=== PATIENT | male | born 1945 | race Caucasian/White ===

== ENCOUNTER 2025-02-14 21:50 | Emergency (ER) | payer OTHER ==
--- NOTE | 2025-02-14 22:31 | RAD REPORT ---
EXAMINATION: CT HEAD WITHOUT CONTRAST CT CERVICAL SPINE WITHOUT CONTRAST CLINICAL INDICATION: Male, 79 years old. SYNCOPE TECHNIQUE: Axial CT images from the skull base to the vertex without intravenous contrast. Axial CT i mages through the cervical spine were obtained without intravenous contrast. Sagittal and coronal reformatted images were created from the data set. Coronal and sagittal reformatted images were creat ed from the data set. One or more of the following dose reduction techniques were used: Automated exposure control, adjustment of the mA and/or kV according to patient size, and/or iterative reconstr uction. Unless otherwise specified, incidental findings do not require dedicated imaging follow-up. [id number]. COMPARISON: No prior exam. FINDINGS: Head: INTRACRANIAL: No acute intracranial hemorrhage. No hydrocephalus. No mass effect or midline shift. Mi ld chronic small vessel ischemic changes.Mild cerebral atrophy. VASCULATURE: No visualized abnormalities in the arteries or dural venous sinuses. SCALP/SKULL: No calvarial fracture identified. No acute soft tissue abnormality. SINUSES: The visualized paranasal sinuses are mostly clear. No significant mastoid fluid. Cervical spine: ALIGNMENT: The cervical spine has normal alignment without scoliosis or spondylolisthesis. BONE: Bridging or near bridging osteophytes extending from C2 through the thoracic spine consistent w ith diffuse idiopathic skeletal hyperostosis.. DEGENERATIVE: Mild neural foraminal narrowing is present at several levels, though most advanced on t he left at C6-7 where it is moderate. Posterior osteophyte at C3-4 likely relates to at least mild to moderate central spinal stenosis. SOFT TISSUE: No significant abnormalities in the soft tissue of the neck. The visualized lung apices are clear. Carotid artery calcifications. IMPRESSION: No acute intracranial abnormality. No acute fracture or traumatic malalignment of the cervical spine.
--- NOTE | 2025-02-14 22:32 | RAD REPORT ---
EXAM: Chest Single View HISTORY: 79 years Male syncope COMPARISON: None. FINDINGS: LUNGS/PLEURA: Hazy opacities in lung bases favored to represent chronic interstitial changes. No defi nite acute process. CARDIAC/MEDIASTINUM: The cardiac silhouette is within normal limits. UPPER ABDOMEN: No significant abnormality. BONES: Sternotomy. No acute abnormality. LINES/TUBES/OTHER: N/A IMPRESSION: Probably chronic changes in the lung bases but no priors available for comparison. No consolidative a irspace disease or pulmonary edema.
[2025-02-14 22:40] LABS: Absolute Basophils 0.1 K/uL (0-0.5); Absolute Eosinophils 0.5 K/uL (0-0.5); Absolute Lymphocytes (CBC) 1.4 K/uL (0.7-4.9); Absolute Neutrophil 4.6 K/uL (1.8-8.0); Basophils % 1.3 % (0-1.3); Eosinophils % 7.1 % (0-4.4); Hematocrit 33.7 % (39.6-49.0); Hemoglobin 11.5 g/dL (13.6-17.9); Lymphocytes % 17.8 % (15.3-44.8); MCH 30.7 pg (27.0-35.0); MCV 90.2 fL (80-100); MPV 7.2 fL (7.6-11.3); Monocytes % 13.4 % (3.3-12.3); Neutrophils % 60.4 % (41.7-73.7); Nucleated Red Blood Cells % 0.2 % (0-0); Platelets 190 thou/uL (152-406); RBC Red Blood Cell Count 3.74 M/uL (4.33-5.43)
[2025-02-14 22:43] LABS: PT Prothrombin Time 14.2 SECONDS (10-13.0); Protime INR 1.26
[2025-02-14 22:55] LABS: ALT/SGPT 16 U/L (16-61); AST/SGOT 15 U/L (15-37); Albumin 3.2 g/dL (3.4-5.0); Albumin/Globulin Ratio 0.8 (1.1-1.8); Alkaline Phosphatase 88 U/L (45-117); Anion Gap 11.6 mEq/L (5.0-15.0); BUN Blood Urea Nitrogen 51 mg/dL (7-18); Bicarbonate 23 mEq/L (21-32); Bilirubin Total 0.5 mg/dL (0.2-1.0); Globulin 4.2 g/dL (2.3-3.5); Glomerular Filtration Rate 33 ml/min (=/>90); Glucose Level 118 mg/dL (74-106); Magnesium 2.1 mg/dL (1.6-2.4); Potassium 4.6 mEq/L (3.5-5.1); Protein, Total 7.4 g/dL (6.4-8.2); Sodium Level 136 mEq/L (136-145); Troponin High Sensitivity 6.9 pg/mL (<58.9)
[2025-02-14 22:56] LABS: Bilirubin Direct < 0.2 mg/dL (0-0.2); Bilirubin Indirect, Calculated 0.3 mg/dL (0.2-0.8)
[2025-02-14] MEDS ORDERED: NA CHLORIDE 0.9% 1,000 ML ONE (23:12)
--- NOTE | 2025-02-15 00:50 | ER ---
Nurse's Notes [facility] Name: Lc Chaudhari Age: 79 yrs Sex: Male : 1945 Arrival Date: 02/14/2025 Time: 21:50 Bed 15 Private MD: Diagnosis: Orthostatic hypotension;Syncope;Abnormal results of kidney function studies Presentation: 02/14 22:00 Chief complaint: EMS states: toned out for syncopal episode at home, Family able to me1 assist patient to the ground. Did not hit his head. Patient reports dizziness for about 3 months. Daughter reports increased confusion since moving here about a week ago. 20g RAC, BGL 85. BP 80/50 when EMS first got to patient, 107/63 on arrival to ER. Coronavirus screen: Vaccine status: Patient reports being unvaccinated. Ebola Screen: No symptoms or risks identified at this time. Initial Sepsis Screen: Does the patient meet any 2 criteria? No. Patient's initial sepsis screen is negative. Does the patient have a suspected source of infection? No. Patient's initial sepsis screen is negative. Risk Assessment: Do you want to hurt yourself or someone else? Patient reports no desire to harm self or others. Onset of symptoms was February 14, 2025. Care prior to arrival: IV initiated. 20 GA, in the right antecubital area, Glucose check: 85. 22:00 Method Of Arrival: EMS: [facility]1 22:00 Acuity: BROOKS 3 me1 Triage Assessment: 22:04 General: Appears in no apparent distress. well groomed, well developed, well nourished, tn1 Behavior is calm, cooperative, appropriate for age. Pain: Denies pain. EENT: No signs and/or symptoms were reported regarding the EENT system. Neuro: Level of Consciousness is awake, alert, obeys commands, Oriented to person, place, time, situation, Appropriate for age Reports dizziness, since about 3 months ago a syncopal episode. Cardiovascular: Patient's skin is warm and dry. Respiratory: Airway is patent Respiratory effort is even, unlabored, Respiratory pattern is regular, symmetrical. GI: No signs and/or symptoms were reported involving the gastrointestinal system. : No signs and/or symptoms were reported regarding the genitourinary system. Derm: Skin is intact, is healthy with good turgor, Skin is pink, warm \T\ dry. Musculoskeletal: No signs and/or symptoms reported regarding the musculoskeletal system. Historical: - Allergies: 22:04 No Known Allergies; me1 - PMHx: 22:04 Hypertensive disorder; me1 - PSHx: 22:04 Coronary artery bypass graft; me1 - Immunization history:: Adult Immunizations up to date. - Infectious Disease History:: Denies. - Social history:: Smoking status: Patient/guardian denies using tobacco, but has a distant history of tobacco abuse. Screenin:05 [facility] ED Fall Risk Assessment (Adult) History of falling in the last 3 months, me1 including since admission Yes- single mechanical fall (1 pt) Confusion or Disorientation No (0 pts) Intoxicated or Sedated No (0 pts) Impaired Gait No (0 pts) Mobility Assist Device Used No (0 pt) Altered Elimination No (0 pt) Score/Fall Risk Level 0 - 2 = Low Risk Maintained a safe environment, Provided non-skid footwear, Hourly rounding (assess needs \T\ fall precautionary measures) done. Abuse screen: Denies threats or abuse. Nutritional screening: No deficits noted. Tuberculosis screening: No symptoms or risk factors identified. Assessment: 22:05 General: See triage assessment. tn1 02/15 00:57 Cardiovascular: Rhythm is sinus rhythm. 5 Vital Signs: 02/14 22:00 BP 110 / 63; Pulse 75; Resp 18; Temp 97.3; Pulse Ox 100% ; Weight 63.5 kg; Height 5 ft. me1 9 in. ; Pain 0/10; 23:10 BP 116 / 66 Supine; Pulse 69; Resp 20; Pulse Ox 99% ; me1 23:11 BP 118 / 62 Sitting; Pulse 73; me1 23:12 BP 85 / 59 Standing; Pulse 69; me1 23:45 BP 130 / 63; Pulse 66; Resp 18; Pulse Ox 100% ; me1 0318 00:50 BP 141 / 66; Pulse 75; Resp 17; Temp 98; Pulse Ox 99% on R/A; Pain 0/10; rg5 00:52 BP 121 / 69 Sitting; Pulse 75; rg5 00:54 BP 106 / 58 LA Standing; Pulse 77; rg5 02/14 22:00 Body Mass Index 20.67 (63.50 kg, 175.26 cm) me1 02/14 22:00 Pain Scale: Adult me1 02/15 00:50 Pain Scale: Adult rg5 ED Course: 02/14 21:50 Patient arrived in ED. [email or web address] 21:52 Tanner Nava PA is PHCP. cp 21:52 Yosef Randall MD is Attending Physician. cp 22:00 Fabiola So, RN is Primary Nurse. me1 22:04 Triage completed. me1 22:04 Arm band placed on Patient placed in an exam room. me1 22:05 Patient has correct armband on for positive identification. Bed in low position. Call me1 light in reach. Side rails up X2. Provided Education on: POC. Verbalized understanding.. Client placed on continuous cardiac and pulse oximetry monitoring. NIBP monitoring applied. manufacturing lab technician on. Pulse ox on. NIBP on. 22:05 No provider procedures requiring assistance completed. Maintain EMS IV. Dressing me1 intact. Good blood return noted. Site clean \T\ dry. Gauge \T\ site: 20g RAC. Flushed with 10 mL NS. 22:14 CT Head C Spine In Process Unspecified. EDMS 22:23 XRAY Chest (1 view) In Process Unspecified. EDMS 22:37 Basic Metabolic Panel Sent. me1 22:37 CBC with Diff Sent. me1 22:37 LFT's Sent. me1 22:37 Magnesium Sent. me1 22:37 PT-INR Sent. me1 22:37 Troponin HS Sent. me1 22:37 Initial lab(s) drawn, by tn, sent to lab. EKG done, by ED staff, reviewed by Tanner Nava me1 BERTHA. 02/15 00:50 Gunner Sylvester MD is Referral Physician. cp 00:50 Kayal Montano MD is Referral Physician. cp 00:57 IV discontinued, bleeding controlled, No redness/swelling at site. Pressure dressing rg5 applied. Administered Medications: 02/14 23:19 Drug: NS 0.9% IV 1000 ml IV at 1000 ml once; to be given as a bolus over 60 minutes me1 Route: IV; Rate: 1000 ml; Site: right antecubital; 02/15 01:03 Follow up: IV Status: Completed infusion; IV Intake: 1000ml rg5 Medication: 02/14 22:05 VIS not applicable for this client. me1 Intake: 02/15 01:03 IV: 1000ml; Total: 1000ml. rg5 Outcome: 00:50 Discharge ordered by . ollie 01:02 Discharged to home ambulatory, rg5 01:02 Condition: stable 01:02 Discharge instructions given to patient, family, Instructed on discharge instructions, follow up and referral plans. Demonstrated understanding of instructions, follow-up care, 01:03 Patient left the ED. rg5 Signatures: Dispatcher [employer] EDMS Tanner Nava PA PA cp Jeffries, Jennifer [email or web address] Fabiola So, RN RN me1 Edil Mcnair RN RN rg5
--- NOTE | 2025-02-15 00:50 | EDPHYS ---
Physician Documentation [facility] Name: Lc Chaudhari Age: 79 yrs Sex: Male : 1945 Arrival Date: 02/14/2025 Time: 21:50 Bed 15 Private MD: ED Physician Yosef Randall HPI: 02/14 22:00 This 79 yrs old Male presents to ER via EMS with complaints of Syncope. cp 22:00 The patient has experienced syncope, lost consciousness. Onset: The symptoms/episode cp began/occurred just prior to arrival. 22:00 Duration: This was a single episode, that lasted an unknown period of time. Context: cp the episode(s) was witnessed, by family, son, Just prior to the episode the patient experienced dizziness, lightheadedness, Patient reports he stood up, believes he stood up too fast, and was observed to lose consciousness by son. No injuries sustained as patient was caught by son before hitting ground. Patient reports similar episodes in the past recently. Historical: - Allergies: 22:04 No Known Allergies; me1 - PMHx: 22:04 Hypertensive disorder; me1 - PSHx: 22:04 Coronary artery bypass graft; me1 - Immunization history:: Adult Immunizations up to date. - Infectious Disease History:: Denies. - Social history:: Smoking status: Patient/guardian denies using tobacco, but has a distant history of tobacco abuse. ROS: 22:05 Constitutional: Negative for body aches, chills, fever, poor PO intake, cp 22:05 Eyes: Negative for injury, pain, redness, and discharge, cp 22:05 Cardiovascular: Negative for chest pain, edema, palpitations, 22:05 ENT: Negative for drainage from ear(s), ear pain, sore throat, difficulty swallowing, cp difficulty handling secretions, 22:05 Respiratory: Negative for cough, shortness of breath, wheezing, 22:05 Abdomen/GI: Negative for abdominal pain, nausea, vomiting, and diarrhea, 22:05 : Negative for urinary symptoms, 22:05 Neuro: Positive for syncope, Negative for altered mental status, headache, seizure activity, weakness, 22:05 All other systems are negative, Exam: 22:10 Constitutional: The patient appears in no acute distress, alert, awake, comfortable, cp non-diaphoretic, non-toxic, well developed, well nourished, 22:10 Head/face: Noted is abrasion(s), that are mild, of the nose, Sinus tenderness, is not cp appreciated, 22:10 Eyes: Periorbital structures: appear normal, Pupils: equal, round, and reactive to light and accomodation, Extraocular movements: intact throughout, Conjunctiva: normal, no exudate, no injection, Sclera: no appreciated abnormality, Lids and lashes: appear normal, bilaterally, 22:10 ENT: External ear(s): are unremarkable, Nose: Nasal septum: is midline, non-tender, Mouth: Lips: moist, Oral mucosa: moist, Posterior pharynx: Airway: no evidence of obstruction, patent, 22:10 Neck: C-spine: vertebral tenderness, is not appreciated, crepitus, is not appreciated, ROM/movement: is normal, is supple, without pain, no range of motions limitations, 22:10 Chest/axilla: Inspection: normal, Palpation: is normal, no crepitus, no tenderness, 22:10 Cardiovascular: Rate: normal, Rhythm: regular, Edema: is not appreciated, JVD: is not appreciated, 22:10 Respiratory: the patient does not display signs of respiratory distress, Respirations: normal, no use of accessory muscles, no retractions, labored breathing, is not present, Breath sounds: are clear throughout, no decreased breath sounds, no stridor, no wheezing, 22:10 Abdomen/GI: Inspection: abdomen appears normal, Palpation: abdomen is soft and non-tender, in all quadrants, 22:10 Back: pain, is absent, ROM is normal, 22:10 Neuro: Orientation: to person, place \T\ time. Mentation: is normal, Cerebellar function: is grossly normal, Motor: moves all fours, strength is normal, Sensation: is normal, 22:38 ECG was reviewed by the Attending Physician. cp Vital Signs: 22:00 BP 110 / 63; Pulse 75; Resp 18; Temp 97.3; Pulse Ox 100% ; Weight 63.5 kg; Height 5 ft. me1 9 in. ; Pain 0/10; 23:10 BP 116 / 66 Supine; Pulse 69; Resp 20; Pulse Ox 99% ; me1 23:11 BP 118 / 62 Sitting; Pulse 73; me1 23:12 BP 85 / 59 Standing; Pulse 69; me1 23:45 BP 130 / 63; Pulse 66; Resp 18; Pulse Ox 100% ; me1 02/15 00:50 BP 141 / 66; Pulse 75; Resp 17; Temp 98; Pulse Ox 99% on R/A; Pain 0/10; rg5 00:52 BP 121 / 69 Sitting; Pulse 75; rg5 00:54 BP 106 / 58 LA Standing; Pulse 77; rg5 02/14 22:00 Body Mass Index 20.67 (63.50 kg, 175.26 cm) me1 02/14 22:00 Pain Scale: Adult me1 02/15 00:50 Pain Scale: Adult rg5 MDM: 02/14 21:52 Medical Screening Exam initiated cp 22:00 Differential Diagnosis: cardiac arrhythmia, cerebrovascular accident, drug effect, GI cp bleed, idiopathic syncope, pseudo seizure, seizure, transient ischemic attack, vasovagal episode. 02/15 00:50 Data reviewed: vital signs, nurses notes, lab test result(s), EKG, radiologic studies, cp CT scan, plain films, and as a result, I will discharge patient. 00:50 Consideration of Admission/Observation Escalation of care including cp admission/observation considered. I considered the following discharge prescriptions or medication management in the emergency department Medications were administered in the Emergency Department. See MAR. Independent interpretation of the following test(s) in the Emergency Department EKG: See my EKG interpretation above. Care significantly affected by the following chronic conditions: Hypertension. 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 Refusal of service: The patient/guardian displays adequate decision making capability and despite a detailed discussion of alternatives, benefits, risks, and consequences refuses: Admission to the hospital for further work-up and treatment, risks explained after discussing results of today's testing with concern for kidney functioning and cardiac cause of syncope. patient understands he can return at any time for reevaluation. 02/14 21:58 Order name: Basic Metabolic Panel; Complete Time: 23:46 cp 02/14 23:46 Interpretation: Normal except: GLUC 118; BUN 51; CRE 1.99; GFR 33. cp 02/14 21:58 Order name: CBC with Diff; Complete Time: 22:47 cp 02/14 22:47 Interpretation: Normal except: RBC 3.74; HGB 11.5; HCT 33.7; MPV 7.2; MN% 13.4; cp EOSINOPHIL % 7.1. 02/14 21:58 Order name: LFT's; Complete Time: 23:46 cp 02/14 21:58 Order name: Magnesium; Complete Time: 23:46 cp 02/14 21:58 Order name: PT-INR; Complete Time: 22:47 cp 02/14 21:58 Order name: Troponin HS; Complete Time: 23:46 cp 02/14 21:58 Order name: XRAY Chest (1 view); Complete Time: 22:47 cp 02/14 22:47 Interpretation: Report review. cp 02/14 21:58 Order name: CT Head C Spine; Complete Time: 22:47 cp 02/14 21:58 Order name: EKG; Complete Time: 21:59 cp 02/14 21:58 Order name: Cardiac monitoring; Complete Time: 22:37 cp 02/14 21:58 Order name: EKG - Nurse/Tech; Complete Time: 22:37 cp 02/14 21:58 Order name: IV Saline Lock; Complete Time: 22:06 cp 02/14 21:58 Order name: Labs collected and sent; Complete Time: 22:37 cp 02/14 21:58 Order name: O2 Per Protocol; Complete Time: 22:07 cp 02/14 21:58 Order name: O2 Sat Monitoring; Complete Time: 22:07 cp 02/14 21:58 Order name: Orthostatics; Complete Time: 23:15 cp EC/17 22:38 Rate is 69 beats/min. Rhythm is regular. WA interval is prolonged at 208 msec. QRS cp interval is normal. QT interval is normal. T waves are Inverted in lead aVR. Interpreted by me. Reviewed by me. Administered Medications: 23:19 Drug: NS 0.9% IV 1000 ml IV at 1000 ml once; to be given as a bolus over 60 minutes me1 Route: IV; Rate: 1000 ml; Site: right antecubital; 02/15 01:03 Follow up: IV Status: Completed infusion; IV Intake: 1000ml rg5 Disposition: 18:55 Chart complete. cp Disposition Summary: 02/15/25 00:50 Discharge Ordered Notes: Location: Home cp Problem: new cp Symptoms: have improved cp Condition: Stable cp Diagnosis - Orthostatic hypotension cp - Syncope cp - Abnormal results of kidney function studies cp Followup: cp - With: Gunner Sylvester MD - When: 2 - 3 days - Reason: syncope Followup: cp - With: Kayla Montano MD - When: 2 - 3 days - Reason: kidney disease Discharge Instructions: - Discharge Summary Sheet cp - Hypotension cp - Orthostatic Hypotension cp - Syncope cp - Acute Kidney Injury, Adult cp Forms: - Medication Reconciliation Form cp - Antibiotic Education cp - Prescription Opioid Use cp - Patient Portal Instructions cp - Leadership Thank You Letter cp Addendum: 02/17/2025 09:39 I was immediately available for consultation during this patient's visit. I did not e c2 personally see the patient or discuss the patient with the MERLE. . Signatures: Dispatcher [employer] EDMS Tanner Nava PA PA cp Fabiola So, RN RN me1 Yosef Randall MD MD ec2 Edil Mcnair RN rg5 Corrections: (The following items were deleted from the chart) 02/14 21:59 21:59 Head C Spine MPR Wo Con+CT.RAD.BRZ ordered. EDMS EDMS
[2025-02-15 01:14] VITALS: TEMP 98; O2SAT 99
[2025-02-15 01:16] VITALS: BP 106/58
--- NOTE | 2025-02-16 12:34 | EKG ---
Test Date: 2025-02-14 Test Time: 22:31:46 [employer] Locomotive Crane: MIREYA MEASUREMENT RESULTS: Intervals: Rate: 69 IA: 208 QRSD: 96 QT: 408 QTc: 437 [place]: P: 53 IA: 208 QRS: 29 T: 35 INTERPRETIVE STATEMENTS: Sinus rhythm with occasional premature ventricular complexes Otherwise normal ECG No previous ECG available for comparison Electronically Signed On 02-16-25 12:26:42 CDT by Robin Tam
== END 2025-02-15 01:03 | disposition home or self-care (01) ==
LOC: ER 21:50
DX: I95.1 Orthostatic hypotension (principal); R94.4 Abnormal results of kidney function studies; I10 Essential (primary) hypertension; Z95.1 Presence of aortocoronary bypass graft
CPT/HCPCS: 96361; 93005; 85025; 80048; 36415; 83735; 85610; 80076; 84484; 70450; 72125; 71045; 96360; 99285; J7030